=== PATIENT | female | born 1970 | race Caucasian/White ===

== ENCOUNTER 2019-07-12 11:56 | Emergency (ER) | payer OTHER ==
[~2019-07-12] VITALS: Ht 154.9 cm; Wt 99.8 kg
[~2019-07-12 11:56] MED LIST: KEFLEX500 MG PO; NORCO 5-325 TA1 EACH PO; TYLENOL325 MG PO
[2019-07-12] MEDS ORDERED: LISINOPRIL20 MG PO (16:28)
[2019-07-12] MEDS ORDERED: ZOFRAN4 MG PO (16:28)
[2019-07-12] MEDS ORDERED: TRAMADOL HCL50 MG PO (16:42)
== END 2019-07-12 16:50 | disposition home or self-care (01) ==
LOC: ED 11:56
DX: E27.8 Other specified disorders of adrenal gland (principal); R10.9 Unspecified abdominal pain; I10 Essential (primary) hypertension; F17.200 Nicotine dependence, unspecified, uncomplicated
CPT/HCPCS: 74177; 80053; 81001; 83690; 84703; 85025; 99284-25; 99406; J1885; J2270; J2405; J7030; Q9967